=== PATIENT | male | born 1970 | race Caucasian/White ===

== ENCOUNTER 2023-05-29 01:20 | Day surgery (SDC) | payer OTHER, SELFPAY ==
[2023-05-04 10:47] VITALS: BMI 24.4
--- NOTE | 2023-05-25 11:15 | SUR.PREOP ---
Patient called regarding upcoming procedure. Reviewed preop instructions, appointment times, and procedure prep.
[2023-05-29 09:23] VITALS: BP 115/77; PULSE 95; RESP 20; TEMP 36.4; O2SAT 100; BMI 23.8
[2023-05-29] MEDS: LACTATED RINGERS 1,000 ML 150 ML IV CONT (09:31)
--- NOTE | 2023-05-29 09:38 | P.PNAN_ITS ---
Anes - Initial Pre Proc Eval Procedure: Operation Date: 05/29/23 10:30 Proposed Procedures p Screening Colonoscopy - Dimas Chau MD Date/Time: 05/29/23 09:38 Surgeon: Dimas Chau MD Pre Op Diagnosis: neoplasm screening Patient Data Age: 53 Gender: M Height: 1.8 m Weight: 77.5 kg Last Vital Signs Temp 97.6 F 05/29/23 09:23 Pulse 95 05/29/23 09:23 Resp 20 05/29/23 09:23 BP 115/77 05/29/23 09:23 Pulse Ox 100 05/29/23 09:23 O2 Del Method Room Air 05/29/23 09:23 Allergies Allergy/AdvReac Type Severity Reaction Status Date / Time Penicillins Allergy Unknown Skin Verified 05/29/23 09:19 Reaction Home Medications Medication Instructions Recorded Confirmed Type cholecalciferol (vitamin D3) 1,250 1,250 mcg PO WEEKLY #12 tabs 04/23/23 05/04/23 Rx mcg (50,000 unit) tablet Patient hx anesthesia problems: none Family hx anesthesia problems: none Results Review: All pre-operative results and documents have been reviewed as part of the pre- operative evaluation. [facility] Past Medical History Medical History (Updated 04/02/23 @ 16:53 by Onofre Lutz MD) History of seronegative inflammatory arthritis (~2015) Resolved on sulfasalazine for < 1 year Social History Social History (Updated 04/02/23 @ 15:34 by Sarahi Schafer CMA) Smoking packs per day: 10 Smoking cigarettes per day: 200.0 Years smoked: 30 Smoking pack-years: 300.00 Smoking status: Current every day smoker Tobacco type: cigarettes Alcohol intake: current Drinks per week: 30 Substance use: never Substance use type: does not use Living arrangements: with family Spiritual care concerns: No Anes - Eval Final PreProcedure Day of Procedure 05/29/23 09:38 Patient weight: normal Heart: regular rate and rhythm Lungs: clear to auscultation Airway: Mallampati scale class II Neurological: alert and oriented Last oral intake: >/= 8 hours ASA classification: II Emergent: no Anesthetic plan: proceed Anesthesia type and monitoring: general GIVS and standard monitoring Results Review: All pre-operative results and documents have been reviewed as part of the pre- operative evaluation. Informed Consent: The patient's anesthetic plan and its attendant risks and benefits were discussed with the patient/family/POA. Questions were solicited and answers provided to the satisfaction of the patient/family/POA.
--- NOTE | 2023-05-29 10:11 | PM.HPGS ---
History of Present Illness History of Present Illness Consent: Risks, benefits, and alternatives have been discussed and questions answered. Patient agrees to proceed with procedure. Chief complaint: neoplasm screening Narrative: Adrian Kunz is a 53 year old male Who was referred for colon cancer screening. Review of Systems Review of Systems: All systems reviewed & are unremarkable except as noted in HPI and below PMFSH Past Medical History Medical History History of seronegative inflammatory arthritis (~2015) Resolved on sulfasalazine for < 1 year Social History Social History Smoking packs per day: 10 Smoking cigarettes per day: 200.0 Years smoked: 30 Smoking pack-years: 300.00 Smoking status: Current every day smoker Tobacco type: cigarettes Alcohol intake: current Drinks per week: 30 Substance use: never Substance use type: does not use Living arrangements: with family Spiritual care concerns: No Meds Home Medications and Allergies Home Medications Medication Instructions Recorded Confirmed Type cholecalciferol (vitamin D3) 1,250 1,250 mcg PO WEEKLY #12 tabs 04/23/23 05/04/23 Rx mcg (50,000 unit) tablet Allergies Allergy/AdvReac Type Severity Reaction Status Date / Time Penicillins Allergy Unknown Skin Verified 05/29/23 09:19 Reaction Vital Signs Vital Signs - 24 hr 05/29/23 09:23 Temperature 36.4 C Pulse Rate 95 Respiratory Rate 20 Blood Pressure 115/77 Pulse Oximetry 100 Oxygen Delivery Room Air Exam Resp: Auscultation: clear to auscultation bilaterally Cardio: Rate: regular rate Rhythm: regular rhythm GI: GI Palp: Yes Soft to palpation and No Tenderness to palpation present (GI) Assessment and Plan Assessment and plan (1) Colon cancer screening: Code(s): Z12.11 - Encounter for screening for malignant neoplasm of colon Status: Acute Assessment and Plan: Colonoscopy with possible biopsy or polypectomy or cautery or injection of substances.
[2023-05-29 10:35] VITALS: BP 101/64; PULSE 76; RESP 26; O2SAT 99
[2023-05-29 10:45] VITALS: BP 105/61; PULSE 73; RESP 21; O2SAT 100
[2023-05-29 10:55] VITALS: BP 108/74; PULSE 81; RESP 20; O2SAT 99
== END 2023-05-29 11:05 | disposition home or self-care (01) ==
PROVIDERS: PCP Family Medicine; Visit Provider Internal Medicine Gastroenterology
PROC: 0DJD8ZZ Inspection of Lower Intestinal Tract, Via Natural or Artificial Opening Endoscopic (ICD-10-PCS; CPT 45378; principal; 2023-05-29 10:30)
DX: Z12.11 Encounter for screening for malignant neoplasm of colon (principal); K62.1 Rectal polyp; F17.210 Nicotine dependence, cigarettes, uncomplicated
CPT/HCPCS: 45380; 88305; J7120

== ENCOUNTER → 2025-03-23 15:35 | Outpatient (REF) | payer OTHER, SELFPAY ==
--- NOTE | 2025-03-23 15:35 | S_PTH ---
PATIENT: Adrian Kunz LOC: [facility] #:[id number] AGE/SX: 54/M ROOM: RE03/23/[address]: Tanya Noe MD : 1970 BED: DIS: SPEC #: [id number] RECD: 03/24/25 08:42 STATUS: SHARRON STERLING #: [id number] MILAD: 03/23/25 15:[address]: Tanya Noe DEPT: [facility] [employer] [facility] Surgical RECD BY: Darby Alvarado MLT, ([facility]) ENTERED: 03/24/25 08:43 SP TYPE: Surgical OTHR DR: Nan Lutz MD Tissues: A - Biopsy Procedures: Hematoxylin and Eosin Stain Gross and Microscopic Level 4
== END ==
LOC: ANHLAB 15:35
PROVIDERS: PCP Family Medicine; Visit Provider Plastic Surgery
DX: L72.0 Epidermal cyst (principal)
CPT/HCPCS: 88305